=== PATIENT | female | born 1935 | race Caucasian/White ===

== ENCOUNTER 2017-04-17 06:50 | Inpatient (IN) | payer OTHER ==
--- NOTE | ~2017-04-17 | CO ---
Unit #: [id number] #: [id number] Patient: EDDI VAIL [id number] [address] [place], [place] [address] [id number] I MR#: [id number] NAME: EDDI VAIL. ROOM: 219 Age: 81 Sex: F Admission Date: 04/17/2017 : 1935 Attending Physician: Jarred Patel M.D. Primary Care Physician: Chin Moss M.D. Consultation Date: 04/17/2017 CONSULTATION REPORT REASON FOR CONSULTATION Severe anemia. HISTORY OF PRESENTING ILLNESS Ms. Vail is an 81-year-old pleasant, lady, presented to office with weakness and dizziness, was found to be severely anemic and was sent to the hospital for transfusion and evaluation. The patient says she has been feeling weak and dizzy for the last several weeks. She has lost some weight also recently, but she has good appetite otherwise. Denies dysphagia, nausea, vomiting, or hematemesis. Denies NSAIDs or blood thinners. Denies any black stool or blood in the stool. She has mild right-sided abdominal pain. PAST MEDICAL HISTORY Hypertension and hyperlipidemia. ALLERGIES None. MEDICATIONS Medications at home include baby aspirin, atenolol, and simvastatin. SOCIAL HISTORY Nonsmoker, nonalcoholic. REVIEW OF SYSTEMS A complete 10-point review of systems was done, which is negative other than as mentioned above. PHYSICAL EXAMINATION VITAL SIGNS: Stable. Afebrile. GENERAL: No acute distress. HEENT: Pupils are equal and reactive. Sclerae are anicteric. Oral mucosa is moist. NECK: No JVD. No lymphadenopathy. CHEST: Clear to auscultation bilaterally. CARDIOVASCULAR: Regular rate and rhythm. No murmurs. ABDOMEN: Soft, nontender, and nondistended. EXTREMITIES: Without clubbing, cyanosis, or edema. NEUROLOGIC: Intact. SKIN: Warm and dry. DIAGNOSTIC STUDIES LABORATORY RESULTS: Hemoglobin of 6.1, MCV of 61. Unit #: [id number] #: [id number] Patient: EDDI VAIL ASSESSMENT AND PLAN Severe microcytic anemia, suggest possibility of chronic blood loss. We will plan on giving her blood transfusion. Check iron and B12 levels and replace as needed. She will need complete gastrointestinal evaluation. We will do an esophagogastroduodenoscopy today. Risks and benefits were explained. She is agreeable. Thank you, Dr. Moss and Dr. Patel, for this interesting consult. We will follow along. Dictated by... Valorie De Luna/ashley TD: 04/17/2017 22:59 JOB #: [id number] CONSULTATION REPORT Page 1 of 1 X Cosmo Hernandez MD X CONSULTATION REPORT
--- NOTE | ~2017-04-17 | OR ---
Unit #: [id number] #: [id number] Patient: EDDI VAIL [id number] [address] [place], [place] [address] [id number] Suzy MR#: [id number] NAME: EDDI VAIL. ROOM: 219 Date of Procedure: 04/19/2017 Admission Date: 04/17/2017 Surgeon: Billy Barbosa III, M.D. : 1935 Attending Physician: Jarred Patel M.D. Primary Care Physician: Chin Moss M.D. OPERATIVE REPORT PREOPERATIVE DIAGNOSIS Right colon mass. POSTOPERATIVE DIAGNOSIS Right colon mass. PROCEDURE PERFORMED Right hemicolectomy with ileocolic anastomosis. ANESTHESIA General. SPECIMENS Right colon to Pathology. COMPLICATIONS None apparent. INDICATIONS FOR PROCEDURE This is an 81-year-old lady, who has been diagnosed with iron deficiency and anemia and on colonoscopy, she had a suspicious precancerous or cancerous lesion identified in the right colon. She is here today for right hemicolectomy. DESCRIPTION OF PROCEDURE After consent was obtained, the patient was brought to the operating room and placed in the supine position. General anesthetic was administered. Her abdomen was prepped and draped in standard surgical fashion. I made a midline incision and entered the peritoneal cavity without any difficulty. I then placed a protractor as a wound protector, and to facilitate exposure. I did not see any evidence of metastatic disease. I was able to palpate the lesion in the cecum adjacent to the ileocecal valve. I mobilized the colon by freeing up the lateral attachments along the white line of Toldt. Once I had this mobilized, I took down the hepatic flexure. Once the colon was fully mobilized, I fired a FAISAL stapler across the hepatic flexure area and then across the distal ileum. I then used Dakotah clamps and 0 silk ties to ligate the mesentery. I had excellent hemostasis along this area. I then performed a [id number]-fp-[id number] stapled anastomosis creating an ileocolic anastomosis. The common enterotomy was closed with interrupted 2-0 silk Gambee stitches and intervening imbricating stitches. I then closed the mesenteric defect with interrupted 2-0 silk [id number]-jj-[id number] sutures. I irrigated and had Unit #: [id number] #: [id number] Patient: EDDI VAIL excellent hemostasis. All needle, sponge, and instrument counts were correct x2. I reapproximated the fascial edges with interrupted #1 Vicryl sutures and the skin edges were reapproximated with a stapling device. She tolerated the procedure without any problems and returned to the recovery room in stable condition. Dictated by... Billy Barbosa III, M.D. VCL/ashley TD: 04/20/2017 17:00 JOB #: [id number] OPERATIVE REPORT Page 1 of 1 X Billy Barbosa III, MD PROCEDURE OPERATIVE NOTE
--- NOTE | ~2017-04-17 | DS ---
Unit #: [id number] #: [id number] Patient: EDDI VAIL [id number] [address] [place], [place] [address] [id number] I MR#: [id number] NAME: EDDI VAIL. ROOM: 219 Age: 81 Sex: F Admission Date: 04/17/2017 : 1935 Discharge Date: 04/23/2017 Attending Physician: Jarred Patel M.D. Primary Care Physician: Chin Moss M.D. DISCHARGE SUMMARY PRINCIPAL DISCHARGE DIAGNOSES 1. Adenocarcinoma, right colon, with positive lymph nodes. 2. Iron deficiency anemia. 3. Status post right hemicolectomy. 4. Hypertension. 5. Kidney disease, stage 3. Unknown if chronic or not. PROCEDURES 1. Transfusion two units packed RBCs, 04/17/17. 2. EGD with biopsy, 04/17/17. 3. Transfusion one unit packed RBCs, 04/18/17. 4. Colonoscopy with biopsy, 04/18/17. 5. Right hemicolectomy, 04/19/17. 6. Transfusion one unit packed RBCs, 04/20/17. CONSULTANTS 1. Dr. Hernandez - GI Services. 2. [facility]. 3. Dr. Mena - Oncology. REASON FOR HOSPITALIZATION The patient is an 81-year-old white female with a history of hypertension, hyperlipidemia, seen by primary care physician. Apparently had some routine labs, found to be anemic, sent to the emergency room. Found here to have a hemoglobin of 6.1 with low indices. Labs were sent. The patient was admitted. She was typed, cross-matched and transfused two units of packed RBCs. In any case, the patient was transfused. She was seen in consultation by GI, Dr. Hernandez, underwent EGD on the showing some mild gastritis but no bleeding ulcers. She was transfused an additional unit on the . Underwent colonoscopy on the finding a right colonic mass. Surgery was consulted. Oncology was consulted. She was placed on IV iron. She underwent right hemicolectomy on the . Postop, she received one more unit of blood on the . She is currently stable, tolerating a regular diet, afebrile. Last CBC yesterday showed a hemoglobin of 9 and was otherwise within normal limits. Pathology shows 2 of 29 lymph nodes positive. CEA preop was 0.7. The patient is ambulating. Room air O2 at 93%, being discharged home. She is to call Dr. Mena's office to schedule an office visit. She is to follow with Dr. Barbosa in six days. She was given a prescription for Lortab 7.5/325, one q.4 hours p.r.n. for pain, #30 with no refills. She is to resume her home medicines of Simvastatin 40 mg p.o. q. h.s. and atenolol 50 mg p.o. q. h.s. Unit #: [id number] #: [id number] Patient: EDDI VAIL She will follow up with Dr. Moss in one week. She is on a regular diet as tolerates. Dictated by... Jarred Patel M.D. DEREK/graeme TD: 04/24/2017 10:50 JOB #: [id number] DISCHARGE SUMMARY Page 1 of 1 X Jarred Patel MD X DISCHARGE SUMMARY
--- NOTE | ~2017-04-17 | CO ---
Unit #: [id number] #: [id number] Patient: EDDI VAIL [id number] [address] [place], [place] [address] [id number] I MR#: [id number] NAME: EDDI VAIL. ROOM: 219 Age: 81 Sex: F Admission Date: 04/17/2017 : 1935 Attending Physician: Jarred Patel M.D. Primary Care Physician: Chin Moss M.D. Consultation Date: 04/18/2017 CONSULTATION REPORT CHIEF COMPLAINT Severe anemia, right-sided colonic mass, going for right hemicolectomy. HISTORY OF PRESENT ILLNESS This is an 81-year-old female who had a normal colonoscopy about 5 or 6 years ago. Recently, patient has felt weak, a little bit short of breath, and possible presyncope. At primary care physician's office, her hemoglobin was low. In the hospital, CBC on 02/15/2017, WBC was 6.8, hemoglobin 6.1, MCV 21, platelets 247. Creatinine 0.9, LFTs are normal. Transferrin saturation 1%. The patient had a colonoscopy. I spoke to Dr. Hernandez. There is a right colonic mass. Pathology is pending. She is going to be evaluated by surgical team. Today, she has multiple questions. No one in the family has colon cancer. The patient never noticed blood in the stool or urine. REVIEW OF SYSTEMS CONSTITUTIONAL: No fever, no chills, no sweats, no weight loss. EYES: No visual symptoms. EARS, NOSE AND THROAT: There is no runny nose or sore throat or difficulty hearing. CARDIOVASCULAR: No chest pain. No shortness of breath. No palpitations. No orthopnea. No PND. RESPIRATORY: No cough. No wheezing. No hemoptysis. GASTROINTESTINAL: As mentioned above. GENITOURINARY: No urinary frequency, hesitancy or urgency. No blood in the urine. MUSCULOSKELETAL: No muscle or joint pain. NEUROLOGIC: No headache. No numbness or tingling. No weakness. No seizure. PSYCHIATRIC: No anxiety, depression or mood disturbance. ENDOCRINE: No excessive urination or thirst. DERMATOLOGIC: No rash or change in the skin. ALLERGIC/IMMUNOLOGIC: No symptoms. HEMATOLOGIC/LYMPHATIC: As mentioned above. PAST MEDICAL HISTORY 1. Now colon cancer, going for right hemicolectomy. 2. Prediabetic. 3. Hypertension. Unit #: [id number] #: [id number] Patient: EDDI VAIL HOME MEDICATIONS 1. Tenormin. 2. Protonix. 3. Vasotec. 4. Ferrlecit. ALLERGIES None. SOCIAL HISTORY No smoking, no alcohol, no drugs. Used to work as an commanding officer motorized squad. FAMILY HISTORY Her sister had some sort of cancer, in her late 40s. PHYSICAL EXAMINATION GENERAL: Patient is comfortable. ECOG is 0. The patient is pleasant. VITAL SIGNS: Afebrile, pulse 78, respiratory rate 18, O2 saturation 100%, blood pressure 195/69. HEENT: Moist mucosa. Pupils equally reactive to light. Extraocular muscles intact. Sclerae anicteric. No obvious bleeding from nasal mucosa or oral mucosa. Scalp normal. Hearing normal. NECK: No JVD. No lymphadenopathy. LYMPHATIC/HEMATOLOGIC: There is no palpable adenopathy in the neck, axilla or inguinal area. CARDIOVASCULAR: S1, S2. Regular rate and rhythm. No S3 or S4. RESPIRATORY: Chest symmetrical, normal. Clear to auscultation bilaterally. No wheezes, no rales, no rhonchi. No dullness to percussion. ABDOMEN/GASTROINTESTINAL: Abdomen is soft, nontender, nondistended. No hepatosplenomegaly. EXTREMITIES: There is no clubbing, no cyanosis, no edema. No varicose veins. NEUROLOGICAL: Patient is alert, awake and oriented x3. Cranial nerves II-XII are intact. Sensory grossly intact. Motor is 4/5 in all four extremities. Gait is normal. Station is normal. Language is normal. Memory is normal. DTRs +2 in all four extremities. MUSCULOSKELETAL: No joint swelling. No bony tenderness. No muscle tenderness. SKIN: No petechiae, no rash, no ecchymosis. PSYCHIATRIC: No anxiety. No delusions or hallucinations. There is no agitation. Eye contact is normal. Affect is appropriate. There is no flight of ideas. DIAGNOSTIC STUDIES LABORATORY: As mentioned above. IMAGING: Pending. ASSESSMENT AND PLAN This is an 81-year-old female with the following active issues: 1. Right colonic mass. The patient most likely has adenocarcinoma. She is going for a right hemicolectomy. I will get CT of the abdomen and pelvis with contrast today. Once the pathology becomes available, then we will discuss the prognosis. 2. Anemia. MCV is low. Most likely is bleeding from the colonic mass. She is already getting IV iron. I will check a B12 level. Unit #: [id number] #: [id number] Patient: EDDI VAIL Dictated by... Valorie Del Angel/simi TD: 04/18/2017 17:12 JOB #: [id number] CONSULTATION REPORT Page 1 of 1 X Harrison Mena MD X CONSULTATION REPORT
--- NOTE | ~2017-04-17 | HP ---
Unit #: [id number] #: [id number] Patient: EDDI VAIL [id number] [address] [place], [place] [address] [id number] I MR#: [id number] NAME: EDDI VAIL. ROOM: 219 Age: 81 Sex: F Admission Date: 04/17/2017 : 1935 Attending Physician: Jarred Patel M.D. Primary Care Physician: Chin Moss M.D. HISTORY AND PHYSICAL HISTORY OF PRESENT ILLNESS This is an 81-year-old, white female with history of hypertension and hyperlipidemia who was seen by her primary care physician. Apparently had routine labs and found to be anemic. Sent to the emergency room here and found to have a hemoglobin of 6.1 with low indices and iron deficiency. Admitted yesterday and underwent EGD by GI showing gastritis, but no active bleeding or duodenal ulcers. Set up for a colonoscopy today. Received two units yesterday with a hemoglobin of 8.6, which fell to 7.5 this morning and patient has no other symptoms. She has had some vague right lower quadrant abdominal pain, but no melena, bright red blood per rectum, or hematemesis. She takes rare aspirin or NSAIDs at home. Has no GI or malignancy history. Had a negative colonoscopy about five years ago, which we do not have a copy of, but that is according to the patient who seems to be a good historian. ALLERGIES She has no known medical allergies. MEDS PRIOR TO ADMISSION 1. Atenolol 50 mg q.h.s. 2. Simvastatin 40 mg daily. PAST MEDICAL HISTORY She has had a tonsillectomy, hypertension, and hyperlipidemia. SOCIAL HISTORY Not employed. Nonsmoker. Nondrinker. No street drug use. FAMILY HISTORY Noncontributory. PHYSICAL EXAMINATION GENERAL APPEARANCE: She is awake, alert, and oriented x3 in no acute distress. VITAL SIGNS: Afebrile, pulse 65, respirations 16, blood pressure 144/54, and O2 sats 100% on room air. HEENT: Unremarkable, except for pale mucous membranes. NECK: Supple without JVD, bruits, adenopathy, or thyromegaly. CHEST: Clear to auscultation. HEART: Regular rate and rhythm without any murmurs, rubs, or gallops. ABDOMEN: Soft, nondistended, and nontender with positive bowel sounds and no hepatosplenomegaly. EXTREMITIES: Showed no clubbing, cyanosis, or edema. GENITOURINARY: Deferred. Unit #: [id number] #: [id number] Patient: EDDI VAIL RECTAL: Deferred. NEUROLOGIC: Grossly intact. DIAGNOSTIC STUDIES CARDIOVASCULAR: EKG shows a sinus rhythm, first degree AV block, and LVH. LABORATORY: PT and PTT within normal limits. BMP normal, except for a CO2 of 20, random blood sugar 133, and a GFR of 42. Hemoglobin was 6.1 with a low MCV and MCH and elevated RDW. Iron and ferritin were low. Folic acid was within normal limits. IMPRESSION 1. Iron deficiency anemia. 2. Hypertension. 3. Hyperlipidemia. 4. Renal insufficiency of unknown duration. PLAN As mentioned above, the patient underwent EGD. She is on IV fluids, NPO, IV proton pump inhibitors, and SCD for DVT prophylaxis. She is to undergo a colonoscopy this morning. Will start IV iron and transfuse to keep her hemoglobin above 8. She has serial H and H ordered. Dictated by Valorie Rosenberg/taran TD: 04/18/2017 07:19 JOB #: [id number] HISTORY AND PHYSICAL Page 1 of 1 X Jarred Patel MD HISTORY AND PHYSICAL
--- NOTE | ~2017-04-17 | EKG ---
PATIENT: EDDI VAIL UNIT #: [id number] Ventricular Rate: 65 BPM Atrial Rate: 65 BPM P-R Interval: 272 ms QRS Duration: 86 ms Q-T Interval: 448 ms QTC Calculation(Bezet): 465 ms P [place]: 79 degrees Calculated R [place]: 49 degrees Calculated T [place]: 40 degrees Diagnosis Line: Sinus rhythm with 1st degree A-V block Diagnosis Line: Voltage criteria for left ventricular hypertrophy Diagnosis Line: with repolarization abnormality Diagnosis Line: Abnormal ECG Diagnosis Line: No previous ECGs available Diagnosis Line: Confirmed by PATRICIA HAYES MD ([id number]) on 04/18/2017 Diagnosis Line: 5:59:02 PM INTERPRETING MD: FREDDY COURTNEY
--- NOTE | ~2017-04-17 | OR ---
Unit #: [id number] #: [id number] Patient: EDDI VAIL [id number] [address] [address] [id number] I MR#: [id number] NAME: EDDI VAIL ROOM: 219 Date of Procedure: 04/18/2017 Admission Date: 04/17/2017 Surgeon: Cosmo Hernandez M.D. : 1935 Attending Physician: Jarred Patel M.D. Primary Care Physician: Chin Moss M.D. OPERATIVE REPORT NAME OF PROCEDURES Colonoscopy with biopsy. INDICATION An 81-year-old with severe iron-deficiency anemia. MEDICATIONS Monitored anesthesia. FINDINGS 1. About 4 to 5 cm cratered, deeply adherent mass in ascending colon, most likely malignant. Multiple biopsies were taken. 2. Rest of the colon exam to cecum was normal. PLAN Follow up on the pathology report. We will have Surgery and Oncology involved. DESCRIPTION OF PROCEDURE The patient was explained of the procedure, risks, and benefits along with the risks and benefits of anesthesia. She was brought to the endoscopy room. Propofol anesthesia was given. Rectal exam was done, which was normal. Colonoscope was lubricated, passed up the rectum, advanced under direct vision all the way to the cecum. Cecum was identified by ileocecal valve and appendiceal orifice. Ascending colon mass was biopsied as described. I retroflexed in the rectum. Hemorrhoids were seen. Scope was gently pulled out. She tolerated it well. Dictated by... Valorie De Luna/ashley TD: 04/18/2017 14:42 JOB #: [id number] Unit #: [id number] #: [id number] Patient: EDDI VAIL OPERATIVE REPORT Page 1 of 1 X Cosmo Hernandez MD X PROCEDURE OPERATIVE NOTE
--- NOTE | ~2017-04-17 | OR ---
Unit #: [id number] #: [id number] Patient: EDDI VAIL [id number] [address] [address] [id number] I MR#: [id number] NAME: EDDI VAIL. ROOM: 219 Date of Procedure: 04/17/2017 Admission Date: 04/17/2017 Surgeon: Cosmo Hernandez M.D. : 1935 Attending Physician: Jarred Patel M.D. Primary Care Physician: Chin Moss M.D. OPERATIVE REPORT PROCEDURE PERFORMED Esophagogastroduodenoscopy with biopsy. INDICATIONS FOR PROCEDURE The patient is an 81-year-old, presented with severe microcytic anemia with a hemoglobin of 6, undergoing evaluation with upper endoscopy. MEDICATIONS Monitored anesthesia. POSTOPERATIVE FINDINGS 1. Normal esophagus. 2. Mild gastritis, patchy in antral area. Biopsies taken. 3. Normal duodenum and distal duodenum. PLAN Follow up on the pathology report. Colonoscopy for further evaluation. DESCRIPTION OF PROCEDURE The patient was explained of the procedure, risks, and benefits along with risks and benefits of anesthesia. She was brought to the endoscopy room. Propofol anesthesia was given. Bite block was placed. The scope was passed down the mouth into the esophagus, stomach, duodenum, and distal duodenum. Findings as described. Biopsies taken. Gently, I pulled it out of the patient's mouth. She tolerated it well. Dictated by... Valorie De Luna/ashley TD: 04/18/2017 01:25 JOB #: [id number] Unit #: [id number] #: [id number] Patient: EDDI VAIL OPERATIVE REPORT Page 1 of 1 X Cosmo Hernandez MD X PROCEDURE OPERATIVE NOTE
--- NOTE | ~2017-04-17 | EKG ---
PATIENT: EDDI VAIL UNIT #: [id number] Ventricular Rate: 76 BPM Atrial Rate: 76 BPM P-R Interval: 288 ms QRS Duration: 82 ms Q-T Interval: 408 ms QTC Calculation(Bezet): 459 ms P [place]: 119 degrees Calculated R [place]: -2 degrees Calculated T [place]: 18 degrees Diagnosis Line: Sinus rhythm with 1st degree A-V block Diagnosis Line: Voltage criteria for left ventricular hypertrophy Diagnosis Line: Nonspecific ST abnormality Lateral leads Diagnosis Line: Abnormal ECG Diagnosis Line: When compared with ECG of 17-APR-2017 07:33, Diagnosis Line: (unconfirmed) Diagnosis Line: No significant change was found Diagnosis Line: Confirmed by PATRICIA HAYES MD ([id number]) on 04/18/2017 Diagnosis Line: 6:10:55 PM INTERPRETING MD: FREDDY COURTNEY
--- NOTE | ~2017-04-17 | CO ---
Unit #: [id number] #: [id number] Patient: EDDI VAIL [id number] [address] [address] [id number] MR#: [id number] NAME: EDDI VAIL ROOM: 219 Age: 81 Sex: F Admission Date: 04/17/2017 : 1935 Attending Physician: Jarred Patel M.D. Primary Care Physician: Chin Moss M.D. Consultation Date: 04/18/2017 CONSULTATION REPORT PRIMARY CARE PHYSICIAN Chin Moss M.D. and Jarred Patel M.D. HISTORY AND EXAM Ms. Vail is very robust and pleasant 81-year-old female, who presented to her primary care physician, and on evaluation was found to have profound anemia with a hemoglobin of 6.1. The patient denies any weight loss, hematemesis, hematochezia, melena, hematuria or hemoptysis. She was hemodynamically stable. She was admitted to the hospital and seen by Dr. Hernandez from gastroenterology and on upper endoscopy, there were no significant findings. On colonoscopy today, there was a mass in the ascending colon, consistent with malignancy. PAST MEDICAL HISTORY Tonsillectomy, adenoidectomy, D and C, vaginal delivery, hypertension, hyperlipidemia. ALLERGIES No allergies to medication. HOME MEDICATIONS Include atenolol and simvastatin. FAMILY HISTORY She is unaware of any chronic or inheritable diseases. SOCIAL HISTORY Nonsmoker, nondrinker, retired. REVIEW OF SYSTEMS Otherwise unremarkable. PHYSICAL EXAMINATION VITAL SIGNS: Temperature is 98.8, pulse 70, respirations 18, and blood pressure 195/69. GENERAL: Awake, alert, and oriented in all spheres. She is very pleasant. HEENT: Unremarkable. CARDIAC: Regular rhythm. LUNGS: Clear. ABDOMEN: Soft and nontender. No palpable mass. EXTREMITIES: No edema. NEUROLOGIC: Grossly intact. No skin rashes or lesions. Unit #: [id number] #: [id number] Patient: EDDI VAIL DIAGNOSTIC STUDIES LABORATORY RESULTS: Comprehensive metabolic panel is unremarkable. Serum iron is less than 5. INR is 1.0. After transfusion, hemoglobin is 8.9, hematocrit 68.9, platelets 191,000, white count 5100 with normal differential. IMAGING STUDIES: CT scan and CEA levels are pending. ASSESSMENT AND PLAN An 81-year-old female with profound anemia who is hemodynamically stable, was found to have an ascending colon mass, that is the etiology of her anemia and is likely malignant. I discussed exploratory laparotomy and right hemicolectomy with the patient including risks, benefits, complications, and postoperative expectations. She understands and agrees to proceed. We will review the CT scan before proceeding. Dictated by... Valorie Martinez/ashley TD: 04/19/2017 02:42 JOB #: [id number] CONSULTATION REPORT Page 1 of 1 X Chin Torres MD CONSULTATION REPORT
[2017-04-17 08:05] LABS: BASOPHIL# 0.1 X10e3 (0-0.3); BASOPHIL% 0.8 % (0-2.5); EOSINOPHIL# 0.1 X10e3 (0-0.7); HEMATOCRIT 21.1 % (35.0-45.0); LYMPHOCYTE% 29.7 % (17.0-45.0); MEAN CELL VOLUME 61.1 FL (83-96); MEAN CORPUSCULAR HEMOGLOBIN 17.8 PG (28-34); MEAN CORPUSCULAR HGB CONC 29.1 g/dL (30-36); MEAN PLATELET VOLUME 8.2 FL (6.5-11.5); MONOCYTE# 0.6 X10e3 (0-1.0); NEUTROPHIL% 59.5 % (40-75); PLATELET COUNT 247 X10e3 (140-420); RED BLOOD COUNT 3.45 X10e (3.90-5.30); RED CELL DISTRIBUTION WIDTH 18.7 % (11.0-15.5); WHITE BLOOD COUNT 6.8 X10e3 (4.0-10.5)
[2017-04-17 08:09] LABS: DIFF IND YES; HEMOGLOBIN 6.1 gm/dL (12.0-16.0)
[2017-04-17 08:18] LABS: PARTIAL THROMBOPLASTIN TIME 21.3 SECONDS (23.5-31.3); PROTHROMBIN TIME (PATIENT) 10.1 SECONDS (9.6-11.5)
[2017-04-17 08:27] LABS: BUN/CREATININE RATIO 13.33; CALCIUM SERUM 8.7 mg/dL (8.4-10.2); CREATININE SERUM 1.2 mg/dL (0.6-1.4); GLOM FILT RATE Estimated 42.4 mL/min (>60); POTASSIUM 3.7 mmol/L (3.5-5.1)
[2017-04-17 08:54] LABS: HYPOCHROMIA MOD; PLATELET ESTIMATE NORMAL (NORMAL)
[2017-04-17 08:55] LABS: ANISOCYTOSIS MOD; MICROCYTOSIS MOD
[2017-04-17 08:56] LABS: POIKILOCYTOSIS MOD
[2017-04-17 08:58] LABS: ELLIPTOCYTES PRESENT
[2017-04-17] MEDS ORDERED: ATENOLOL50 MG PO (08:59)
[2017-04-17] MEDS ORDERED: SIMVASTATIN40 MG PO (09:00)
[2017-04-17 09:39] LABS: IRON SERUM <5 ug/dL (28-170); TOTAL IRON BINDING CAPACITY 530 ug/dL (269-535); TRANSFERRIN 378 mg/dL (192-382); TRANSFERRIN SATURATION 1 % (20-50)
[2017-04-17 17:35] LABS: HEMATOCRIT 28.6 % (35.0-45.0); HEMOGLOBIN 8.6 gm/dL (12.0-16.0)
[2017-04-18 01:46] LABS: HEMATOCRIT 24.6 % (35.0-45.0); HEMOGLOBIN 7.5 gm/dL (12.0-16.0)
[2017-04-18 09:37] LABS: BASOPHIL% 0.8 % (0-2.5); EOSINOPHIL# 0.1 X10e3 (0-0.7); EOSINOPHIL% 1.7 % (0.0-7.0); HEMATOCRIT 28.7 % (35.0-45.0); HEMOGLOBIN 8.9 gm/dL (12.0-16.0); LYMPHOCYTE# 1.8 X10e3 (1.0-3.5); LYMPHOCYTE% 34.9 % (17.0-45.0); MEAN CELL VOLUME 68.9 FL (83-96); MEAN CORPUSCULAR HEMOGLOBIN 21.2 PG (28-34); MEAN CORPUSCULAR HGB CONC 30.8 g/dL (30-36); MEAN PLATELET VOLUME 8.7 FL (6.5-11.5); MONOCYTE# 0.6 X10e3 (0-1.0); MONOCYTE% 11.6 % (3.0-12.0); NEUTROPHIL# 2.6 X10e3 (1.5-7.1); PLATELET COUNT 191 X10e3 (140-420); RED BLOOD COUNT 4.17 X10e (3.90-5.30); RED CELL DISTRIBUTION WIDTH 25.5 % (11.0-15.5); WHITE BLOOD COUNT 5.1 X10e3 (4.0-10.5)
[2017-04-18 09:39] LABS: DIFF IND NO
[2017-04-18 09:58] LABS: ALBUMIN SERUM 3.6 g/dL (3.5-5.0); BILIRUBIN,TOTAL 1.3 mg/dL (0.2-2.0); CALCIUM SERUM 8.5 mg/dL (8.4-10.2); CREATININE SERUM 0.9 mg/dL (0.6-1.4); PROTEIN TOTAL SERUM 6.6 g/dL (6.0-8.3)
[2017-04-18 16:59] LABS: HEMATOCRIT 29.9 % (35.0-45.0); HEMOGLOBIN 9.2 gm/dL (12.0-16.0)
[2017-04-19 01:02] LABS: HEMATOCRIT 26.3 % (35.0-45.0); HEMOGLOBIN 8.2 gm/dL (12.0-16.0)
[2017-04-19 05:51] LABS: BASOPHIL# 0.1 X10e3 (0-0.3); EOSINOPHIL# 0.1 X10e3 (0-0.7); EOSINOPHIL% 2.4 % (0.0-7.0); HEMOGLOBIN 8.5 gm/dL (12.0-16.0); LYMPHOCYTE% 33.5 % (17.0-45.0); MEAN CELL VOLUME 69.3 FL (83-96); MEAN CORPUSCULAR HGB CONC 30.3 g/dL (30-36); MEAN PLATELET VOLUME 8.7 FL (6.5-11.5); MONOCYTE# 0.8 X10e3 (0-1.0); MONOCYTE% 12.6 % (3.0-12.0); NEUTROPHIL% 50.5 % (40-75); PLATELET COUNT 195 X10e3 (140-420); RED BLOOD COUNT 4.04 X10e (3.90-5.30)
[2017-04-19 05:52] LABS: DIFF IND NO
[2017-04-19 06:20] LABS: ALBUMIN SERUM 3.4 g/dL (3.5-5.0); BILIRUBIN,TOTAL 0.6 mg/dL (0.2-2.0); BUN/CREATININE RATIO 7.77; CALCIUM SERUM 8.5 mg/dL (8.4-10.2); CREATININE SERUM 0.9 mg/dL (0.6-1.4); MAGNESIUM 2.1 mg/dL (1.6-3.0); POTASSIUM 3.9 mmol/L (3.5-5.1); PROTEIN TOTAL SERUM 6.1 g/dL (6.0-8.3)
[2017-04-19 09:59] LABS: HEMATOCRIT 30.5 % (35.0-45.0); HEMOGLOBIN 9.2 gm/dL (12.0-16.0)
[2017-04-19 22:55] LABS: HEMATOCRIT 27.2 % (35.0-45.0); HEMOGLOBIN 8.1 gm/dL (12.0-16.0)
[2017-04-20 05:25] LABS: HEMATOCRIT 25.7 % (35.0-45.0); HEMOGLOBIN 7.7 gm/dL (12.0-16.0); MEAN CELL VOLUME 69.5 FL (83-96); MEAN CORPUSCULAR HEMOGLOBIN 20.8 PG (28-34); MEAN PLATELET VOLUME 8.8 FL (6.5-11.5); RED BLOOD COUNT 3.7 X10e (3.90-5.30); RED CELL DISTRIBUTION WIDTH 27.1 % (11.0-15.5); WHITE BLOOD COUNT 15.2 X10e3 (4.0-10.5)
[2017-04-20 06:06] LABS: BILIRUBIN,TOTAL 0.3 mg/dL (0.2-2.0); BUN/CREATININE RATIO 6.92; CALCIUM SERUM 8.5 mg/dL (8.4-10.2); CREATININE SERUM 1.3 mg/dL (0.6-1.4); GLOM FILT RATE Estimated 38.4 mL/min (>60); POTASSIUM 4.2 mmol/L (3.5-5.1); PROTEIN TOTAL SERUM 5.4 g/dL (6.0-8.3)
[2017-04-21 07:04] LABS: BASOPHIL% 0.3 % (0-2.5); EOSINOPHIL# 0.2 X10e3 (0-0.7); HEMATOCRIT 28.4 % (35.0-45.0); HEMOGLOBIN 8.8 gm/dL (12.0-16.0); LYMPHOCYTE# 1.4 X10e3 (1.0-3.5); LYMPHOCYTE% 13.2 % (17.0-45.0); MEAN CELL VOLUME 71.9 FL (83-96); MEAN CORPUSCULAR HEMOGLOBIN 22.3 PG (28-34); MEAN PLATELET VOLUME 8.9 FL (6.5-11.5); MONOCYTE% 9.5 % (3.0-12.0); NEUTROPHIL# 7.8 X10e3 (1.5-7.1); PLATELET COUNT 160 X10e3 (140-420); RED BLOOD COUNT 3.95 X10e (3.90-5.30); RED CELL DISTRIBUTION WIDTH 28.3 % (11.0-15.5); WHITE BLOOD COUNT 10.4 X10e3 (4.0-10.5)
[2017-04-21 07:05] LABS: DIFF IND NO
[2017-04-21 07:32] LABS: BUN/CREATININE RATIO 8.18; CALCIUM SERUM 8.3 mg/dL (8.4-10.2); CREATININE SERUM 1.1 mg/dL (0.6-1.4); GLOM FILT RATE Estimated 47.1 mL/min (>60); POTASSIUM 4.2 mmol/L (3.5-5.1)
[2017-04-22 07:04] LABS: HEMATOCRIT 29.1 % (35.0-45.0); MEAN CELL VOLUME 71.8 FL (83-96); MEAN CORPUSCULAR HEMOGLOBIN 22.3 PG (28-34); MEAN PLATELET VOLUME 8.7 FL (6.5-11.5); RED BLOOD COUNT 4.05 X10e (3.90-5.30); RED CELL DISTRIBUTION WIDTH 29.6 % (11.0-15.5); WHITE BLOOD COUNT 9.1 X10e3 (4.0-10.5)
[2017-04-23] MEDS ORDERED: LORTAB 7.5-3251 EACH PO (07:47)
== END 2017-04-23 09:21 | disposition home or self-care (01) | DRG 330 ==
LOC: CED 06:50 → C2A 08:32 → CEDOF 08:32 → CED 08:45 → CEDOF 08:45 → C2A 11:28
PROVIDERS: Emergency Medicine; Internal Medicine; Internal Medicine Hematology
PROC: 30233N1 Transfusion of Nonautologous Red Blood Cells into Peripheral Vein, Percutaneous Approach (ICD-10-PCS; principal; 2017-04-17 14:35)
PROC: 0DB78ZX Excision of Stomach, Pylorus, Via Natural or Artificial Opening Endoscopic, Diagnostic (ICD-10-PCS; 2017-04-18)
PROC: 0DBK8ZX Excision of Ascending Colon, Via Natural or Artificial Opening Endoscopic, Diagnostic (ICD-10-PCS; 2017-04-18)
PROC: 0DTF0ZZ Resection of Right Large Intestine, Open Approach (ICD-10-PCS; 2017-04-18 12:07)
DX: C18.2 Malignant neoplasm of ascending colon (principal); C77.2 Secondary and unspecified malignant neoplasm of intra-abdominal lymph nodes; E11.9 Type 2 diabetes mellitus without complications; N18.3 Chronic kidney disease, stage 3 (moderate); I12.9 Hypertensive chronic kidney disease with stage 1 through stage 4 chronic kidney disease, or unspecified chronic kidney disease; D50.9 Iron deficiency anemia, unspecified; E78.5 Hyperlipidemia, unspecified; K64.9 Unspecified hemorrhoids; M19.90 Unspecified osteoarthritis, unspecified site; K29.50 Unspecified chronic gastritis without bleeding; D63.0 Anemia in neoplastic disease
CPT/HCPCS: 74177; 80048; 80053; 82378; 82607; 82728; 82746; 82947; 83540; 83550; 83735; 85014; 85018; 85025; 85027; 85610; 85730; 86850; 86900; 86901; 86923; 88305; 88309; 88312; 88341; 88342; 93005; 97161; 97530; 99285; C9113; G8978-GP; G8979-GP; J0330; J0360; J1650; J1885; J2270; J2405; J2710; J2916; J3010; J3490; P9016; Q9967

== ENCOUNTER → 2017-05-09 | Outpatient (CLI) | payer OTHER ==
[~2017-05-09] MED LIST: ATENOLOL50 MG PO; LORTAB 7.5-3251 EACH PO; SIMVASTATIN40 MG PO
--- NOTE | ~2017-05-09 | MR2 ---
[facility] A Service of [facility] & [facility] RADIOLOGY TEXT RESULTS PATIENT: EDDI VAIL [facility] 35 UNIT #: [id number] AGE: [address]: Harrison Mena MD SEX: F ORDER DR: [id number] [facility] [address] [place], [place] [address] [id number] O MR#: [id number] Acc #: [id number] NAME: EDDI VAIL : 1935 SEX: F STUDY DATE/TIME: 05/09/2017 18:25 UNIT: [facility] ROOM: STUDY DESCRIPTION: MR Abdomen WWo Cont Attending Physician: Harrison Mena M.D. Referring Physician: Harrison Mena M.D. Ordering Physician: Harrison Mena M.D. Primary Care Physician: Chin Moss M.D. MRI CENTER REPORT This report is preliminary unless electronic signature is present. EXAM MRI abdomen without contrast, 05/09/2017. HISTORY Colon cancer with colon resection surgery 04/18/2017. Weakness and difficulty walking for 3 weeks. Difficulty defecating. Observation for metastatic disease. Restaging. COMPARISON CT abdomen and pelvis with IV contrast 04/18/2017. PROCEDURE Multiplanar, multisequence imaging was obtained of the abdomen without and with contrast. 13 mL MultiHance was administered intravenously for the exam. FINDINGS Gallbladder is contracted, but appears unremarkable. The common bile duct measures 8 mm, which is within normal limits for the patient's stated age, and no intrahepatic biliary dilation is seen. Pancreatic duct appears unremarkable. The exact site of patient's colon surgery is difficult to discern, as several of the postcontrast sequences are degraded by patient motion. There does appear to be some enhancing bowel in the right lateral abdomen with adjacent reticular fat stranding that may represent changes of ileocolic surgical anastomosis. No adenopathy or ascites is identified. 5-mm tiny T2 hyperintense lesion seen in the posterior right hepatic lobe that is not well visualized on postcontrast imaging, favored to represent a tiny cyst. Certainly, no suspicious enhancing liver lesions are evident today. The right kidney is moderately atrophic. There are a couple tiny STS. [facility] A Service of [facility] & [facility] RADIOLOGY TEXT RESULTS PATIENT: EDDI VAIL LOCATION: [facility] : 35 UNIT #: [id number] AGE: [address]: Harrison Mena MD SEX: F ORDER DR: left renal cortical cyst measuring 7 mm and 5 mm, respectively. The spleen size is normal. Suspected pancreatic divisum configuration as a congenital variant, but not mentioned above. Adrenal glands are normal. There is thoracolumbar dextro-scoliotic curvature with degenerative disc and endplate changes predominating at T12-L1. There is aneurysmal dilation with irregular mural plaquing within the distal descending thoracic aorta, where it measures up to 3.4 cm transversely. There is irregular calcified plaquing within the suprarenal abdominal aorta, particularly at the origin of the SMA and right renal arteries. IMPRESSION 1. The exact location of the patient's recent colonic surgery is difficult to discern on this study. There does appear to be some enhancing bowel with fat reticulation in the right mid abdomen that may represent changes of the ascending colectomy with ileocolic anastomosis. Please correlate with patient's known appropriate surgical history. 2. There is no convincing evidence of metastatic disease within the abdomen. 5-mm lesion in the right hepatic lobe is thought to represent a cyst. No suspicious enhancing liver lesions are identified. 3. Subcentimeter left renal cyst. 4. Moderate right renal atrophy. 5. 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 Additionally, there is dense calcific plaquing in the suprarenal abdominal aorta, particularly near the origin of the SMA and right renal arteries. 6. 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 7. Thoracolumbar dextro-scoliosis. Dictated by... Luisa Chowdhury M.D. THIS IS AN ELECTRONICALLY VERIFIED REPORT Luisa Chowdhury M.D. at 05/10/2017 11:45 AM JYOTI/javy TD: 05/10/2017 11:25 JOB #: [id number] MRI CENTER REPORT Page 1 of 1 COPY
[2017-05-09 17:31] LABS: POC - CREATININE 1.24 mg/dL (0.44-1.03)
== END | disposition home or self-care (01) ==
LOC: CMRI 16:13
PROVIDERS: Internal Medicine Hematology
DX: C18.2 Malignant neoplasm of ascending colon (principal); N28.1 Cyst of kidney, acquired; I71.2 Thoracic aortic aneurysm, without rupture; N26.1 Atrophy of kidney (terminal); M41.9 Scoliosis, unspecified
CPT/HCPCS: 74183; 82565; A9577